=== PATIENT | female | born 1950 ===

== ENCOUNTER 2019-11-15 06:49 | Day surgery (SDC) | payer OTHER ==
[~2019-11-15 06:49] MED LIST: ATORVASTATIN CA20 MG PO; CALCIUM500 M2 PO; OSTERA TABLET1 EACH PO; ZETIA10 MG PO
== END 2019-11-15 10:07 | disposition home or self-care (01) ==
LOC: CIR.AMB 06:49 → EDBD 11:30 → CIR.AMB 11:30 → ADM 11:30
DX: M65.4 Radial styloid tenosynovitis [de Quervain] (principal)